=== PATIENT | male | born 1960 | race Caucasian/White ===

== ENCOUNTER 2017-03-12 09:55 | Emergency (ER) | payer OTHER ==
[~2017-03-12] VITALS: Ht 177.8 cm; Wt 92.0 kg
[2017-03-12 09:58] VITALS: BP 187/95; PULSE 82; RESP 24; TEMP 97.7; O2SAT 100
[2017-03-12] MEDS ORDERED: SODIUM CHLOR 0.9% 1000 ML INJ 1,000 ML IV SCH (10:43)
[2017-03-12] MEDS ORDERED: ONDANSETRON HCL 4 MG/2 ML VIAL IVP ONE (10:45)
[2017-03-12] MEDS ORDERED: MORPHINE SULFATE 4 MG/ML INJ IV PUSH ONE (10:45)
[2017-03-12] MEDS ORDERED: KETOROLAC TROMETHAMINE 30 MG/ML (IVP) VIAL IVP ONE (10:45)
[2017-03-12] MEDS ORDERED: SODIUM CHLORIDE 0.9% FLUSH 10 ML FLUSH IV FLUSH PRN (10:45)
--- NOTE | 2017-03-12 10:48 | PD ---
HPI Chief Complaint: Flank/Kidney Pain Time Seen by Provider: 10:43 Travel History International Travel<30 days: No Contact w/Intl Traveler<30days: No Traveled to known affect area: No History of Present Illness HPI The patient is a 57-year-old male who presents emergency department for flank pain. The patient was seen last at [facility] in [place], [place], for right flank pain. The patient was diagnosed with a 0.5 cm kidney stone at that time, was advised his UA was clean from infection, and was discharged home on pain medications and Flomax. The patient states his pain significantly improved, however, returned at 11 PM last night. The pain is located in the right flank, radiates to the right lower aspect of the abdomen , sharp, intermittent, associated with mild nausea. The patient does have a history of kidney stones in the past but denies any history of previous lithotripsy or stent placement. The patient denies any chronic medical problems and does not currently have a primary physician. Patient denies any dysuria, does complain of mild dark-colored urine. PFSH Past Medical History Cardiovascular Problems: Yes (htn) Social History Alcohol Use: No Tobacco Use: No Substance Use: No Allergies-Medications (Allergen,Severity, Reaction): Coded Allergies: No Known Allergies (Unverified , 03/12/17) Reported Meds & Prescriptions Reported Meds & Active Scripts Active No Active Prescriptions or Reported Medications Review of Systems Except as stated in HPI: all other systems reviewed are Neg General / Constitutional: No: Fever Cardiovascular: No: Chest Pain or Discomfort Respiratory: No: Shortness of Breath Gastrointestinal: Positive: Nausea, No: Vomiting, Diarrhea Genitourinary: Positive: Hematuria, Flank Pain, No: Dysuria Skin: No Rash Physical Exam Narrative GENERAL: Awake, alert, pleasant 77-year-old male who appears his stated age and appears in moderate discomfort. SKIN: Focused skin assessment warm/dry. HEAD: Atraumatic. Normocephalic. EYES: Pupils equal and round. No scleral icterus. No injection or drainage. ENT: No nasal bleeding or discharge. Mucous membranes pink and moist. NECK: Trachea midline. No JVD. CARDIOVASCULAR: Regular rate and rhythm. No murmur appreciated. RESPIRATORY: No accessory muscle use. Clear to auscultation. Breath sounds equal bilaterally. GASTROINTESTINAL: Abdomen soft, non-tender, nondistended. No rebound tenderness. Back: No true right CVA tenderness. Mild right flank tenderness. MUSCULOSKELETAL: No obvious deformities. No clubbing. No cyanosis. No edema. NEUROLOGICAL: Awake and alert. No obvious cranial nerve deficits. Motor grossly within normal limits. Normal speech. PSYCHIATRIC: Appropriate mood and affect; insight and judgment normal. Data Data Last Documented VS Vital Signs Date Time Temp Pulse Resp B/P Pulse Ox O2 Delivery O2 Flow Rate FiO2 03/12/17 10:50 99 Room Air 03/12/17 09:58 97.7 82 24 187/95 Orders Basic Metabolic Panel (Bmp) (03/12/17 10:43) Complete Blood Count With Diff (03/12/17 10:43) Urinalysis - C+S If Indicated (03/12/17 10:43) Ct Abd/Pel W/O Iv Contrast (03/12/17 10:43) Iv Access Insert/Monitor (03/12/17 10:43) Ecg Monitoring (03/12/17 10:43) Oximetry (03/12/17 10:43) Morphine Inj (Morphine Inj) (03/12/17 10:45) Ondansetron Inj (Zofran Inj) (03/12/17 10:45) Sodium Chlor 0.9% 1000 Ml Inj (Ns 1000 M (03/12/17 10:43) Sodium Chloride 0.9% Flush (Ns Flush) (03/12/17 10:45) Ketorolac Inj (Toradol Inj) (03/12/17 10:45) Labs Laboratory Tests Test 03/12/17 10:57 White Blood Count 18.8 TH/MM3 Red Blood Count 4.97 MIL/MM3 Hemoglobin 15.4 GM/DL Hematocrit 46.2 % Mean Corpuscular Volume 93.1 FL Mean Corpuscular Hemoglobin 31.1 PG Mean Corpuscular Hemoglobin 33.4 % Concent Red Cell Distribution Width 13.0 % Platelet Count 220 TH/MM3 Mean Platelet Volume 10.0 FL Neutrophils (%) (Auto) 85.4 % Lymphocytes (%) (Auto) 6.2 % Monocytes (%) (Auto) 8.0 % Eosinophils (%) (Auto) 0.0 % Basophils (%) (Auto) 0.4 % Neutrophils # (Auto) 16.1 TH/MM3 Lymphocytes # (Auto) 1.2 TH/MM3 Monocytes # (Auto) 1.5 TH/MM3 Eosinophils # (Auto) 0.0 TH/MM3 Basophils # (Auto) 0.1 TH/MM3 CBC Comment DIFF FINAL Differential Comment Urine Color COLORLESS Urine Turbidity CLEAR Urine pH 5.0 Urine Specific Temple 1.003 Urine Protein NEG mg/dL Urine Glucose (UA) NEG mg/dL Urine Ketones 10 mg/dL Urine Occult Blood NEG Urine Nitrite NEG Urine Bilirubin NEG Urine Urobilinogen LESS THAN 2.0 MG/DL Urine Leukocyte Esterase NEG Urine RBC LESS THAN 1 /hpf Urine WBC LESS THAN 1 /hpf Microscopic Urinalysis Comment CULT NOT INDICATED Sodium Level 133 MEQ/L Potassium Level 4.5 MEQ/L Chloride Level 100 MEQ/L Carbon Dioxide Level 23.5 MEQ/L Anion Gap 10 MEQ/L Blood Urea Nitrogen 18 MG/DL Creatinine 1.51 MG/DL Estimat Glomerular Filtration 48 ML/MIN Rate Random Glucose 71 MG/DL Calcium Level 9.2 MG/DL [facility] Medical Decision Making Medical Screen Exam Complete: Yes Emergency Medical Condition: Yes Medical Record Reviewed: Yes Interpretation(s) Laboratory Tests Test 03/12/17 10:57 White Blood Count 18.8 TH/MM3 Red Blood Count 4.97 MIL/MM3 Hemoglobin 15.4 GM/DL Hematocrit 46.2 % Mean Corpuscular Volume 93.1 FL Mean Corpuscular Hemoglobin 31.1 PG Mean Corpuscular Hemoglobin 33.4 % Concent Red Cell Distribution Width 13.0 % Platelet Count 220 TH/MM3 Mean Platelet Volume 10.0 FL Neutrophils (%) (Auto) 85.4 % Lymphocytes (%) (Auto) 6.2 % Monocytes (%) (Auto) 8.0 % Eosinophils (%) (Auto) 0.0 % Basophils (%) (Auto) 0.4 % Neutrophils # (Auto) 16.1 TH/MM3 Lymphocytes # (Auto) 1.2 TH/MM3 Monocytes # (Auto) 1.5 TH/MM3 Eosinophils # (Auto) 0.0 TH/MM3 Basophils # (Auto) 0.1 TH/MM3 CBC Comment DIFF FINAL Differential Comment Urine Color COLORLESS Urine Turbidity CLEAR Urine pH 5.0 Urine Specific Temple 1.003 Urine Protein NEG mg/dL Urine Glucose (UA) NEG mg/dL Urine Ketones 10 mg/dL Urine Occult Blood NEG Urine Nitrite NEG Urine Bilirubin NEG Urine Urobilinogen LESS THAN 2.0 MG/DL Urine Leukocyte Esterase NEG Urine RBC LESS THAN 1 /hpf Urine WBC LESS THAN 1 /hpf Microscopic Urinalysis Comment CULT NOT INDICATED Sodium Level 133 MEQ/L Potassium Level 4.5 MEQ/L Chloride Level 100 MEQ/L Carbon Dioxide Level 23.5 MEQ/L Anion Gap 10 MEQ/L Blood Urea Nitrogen 18 MG/DL Creatinine 1.51 MG/DL Estimat Glomerular Filtration 48 ML/MIN Rate Random Glucose 71 MG/DL Calcium Level 9.2 MG/DL CT of the abdomen and pelvis reveals 5 mm stone in the proximal right ureter just below the right UPJ causing hydronephrosis to the right kidney with perinephric edema. Left kidney is unremarkable. Diverticulosis of the sigmoid colon without inflammatory changes. Differential Diagnosis Differential diagnosis includes pyelonephritis, nephrolithiasis, hydronephrosis , acute renal failure, atypical cholecystitis. Narrative Course IV was established, labs are drawn and sent, and the patient was placed on cardiac telemetry monitoring and continuous pulse oximetry monitoring. The patient was administered morphine, Toradol, Zofran, and IV fluids. Noncontrast CT of the abdomen and pelvis was ordered. The patient's white count is elevated at 18.8, UA does reveal 10 ketones, no evidence of infection. Creatinine is 1.51. CT reveals a 5 mm stone in the proximal right ureter just below the right UPJ causing hydronephrosis to the right kidney. The patient was reevaluated at 11:46 AM. The patient's pain has resolved. I will increase the patient's Percocet to 10 mg/325 mg And Ibuprofen, and Advised to Continue Taking the Flomax. He Will Be Referred to Urology. The patient is advised to return If symptoms worsen or progress. Diagnosis Primary Impression: Nephrolithiasis Patient Instructions: General Instructions Additional Instructions: Continue Flomax as directed. Percocet and ibuprofen as directed. Follow-up with urology. Return if symptoms worsen or progress. Strain urine. Med/Other Pt SpecificInfo: Prescription(s) given Scripts Oxycodone-Acetaminophen (Percocet)10-325 mg Tab1 Tab PO Q6H PRN (PAIN) #20 TAB Ref 0 Prov:Tamir Echeverria MD 03/12/17 Ibuprofen 600 Mg Fox940 Mg PO Q6H PRN (Pain/Inflammation) #20 TAB Ref 0 Prov:Tamir Echeverria MD 03/12/17 Disposition: 01 DISCHARGE HOME Condition: Stable Tamir Echeverria MD March 12, 2017 10:48
[2017-03-12 10:50] VITALS: O2SAT 99
[2017-03-12 11:26] LABS: AUTOMATED NEUTROPHIL # 16.1 TH/MM3 (1.8-7.7); BASOPHIL # 0.1 TH/MM3 (0-0.2); BASOPHIL % 0.4 % (0.0-2.0); HEMATOCRIT 46.2 % (39.0-51.0); HEMO FLAGS DIFF FINAL; LYMPH % 6.2 % (9.0-44.0); LYMPHOCYTE # 1.2 TH/MM3 (1.0-4.8); MEAN CELL VOLUME 93.1 FL (80.0-100.0); MEAN CORPUSCULAR HEMOGLOBIN 31.1 PG (27.0-34.0); MEAN CORPUSCULAR HGB CONC 33.4 % (32.0-36.0); NEUT % 85.4 % (16.0-70.0); PLATELET COUNT 220 TH/MM3 (150-450); RED BLOOD COUNT 4.97 MIL/MM3 (4.50-5.90); WHITE BLOOD COUNT 18.8 TH/MM3 (4.0-11.0)
[2017-03-12 11:32] LABS: BLOOD, URINE NEG (NEG); GLUCOSE,URINE NEG (NEG); KETONE, URINE 10 mg/dL (NEG); NITRITE,URINE NEG (NEG); URINE COLOR COLORLESS (YELLW/STRAW)
[2017-03-12 11:35] LABS: COMMENT (UR) CULT NOT INDICATED; CULTURE IF INDICATED CULT NOT INDICATED
[2017-03-12 11:42] LABS: BICARBONATE 23.5 MEQ/L (21.0-32.0)
--- NOTE | 2017-03-12 11:42 | RADRPT ---
EXAM DATE/TIME: 03/12/2017 11:10 [facility] COMPARISON: No previous studies available for comparison. INDICATIONS : Right flank painhistory of renal stones. ORAL CONTRAST: No oral contrast ingested. RADIATION DOSE: 15.01 CTDIvol (mGy) MEDICAL HISTORY : Hypertension. Renal calculi. SURGICAL HISTORY : None. ENCOUNTER: Initial ACUITY: 1 day PAIN SCALE: 8/10 LOCATION: Right Abdomen TECHNIQUE: Volumetric scanning of the abdomen and pelvis was performed. Using automated exposure control and ad justment of the mA and/or kV according to patient size, radiation dose was kept as low as reasonably achievable to obtain optimal diagnostic quality images. The lack of IV contrast limits the diagnosis for certain organ pathology. FINDINGS: LOWER LUNGS: The visualized lower lungs are clear. LIVER: Homogeneous density without lesion. There is no dilation of the biliary tree. No calcified gallston es. SPLEEN: Normal size without lesion. PANCREAS: Within normal limits. KIDNEYS: Normal in size and shape. There is hydronephrosis of the right collecting system with perinephric ion ma. No calcified right renal stones are seen. However there is a 5 mm stone in the proximal right ure ter just below the right UPJ causing the obstruction. The left kidney is unremarkable with no evidenc e of hydronephrosis or stones. ADRENAL GLANDS: Within normal limits. VASCULAR: There is no aortic aneurysm. BOWEL/MESENTERY: The stomach, small bowel, and colon demonstrate no acute abnormality. There is no free intraperitone al air or fluid. A few small scattered diverticula along the sigmoid colon without inflammatory marks es. ABDOMINAL WALL: Within normal limits. RETROPERITONEUM: There is no lymphadenopathy. BLADDER: No wall thickening or mass. REPRODUCTIVE: Within normal limits. INGUINAL: There is no lymphadenopathy or hernia. MUSCULOSKELETAL: Within normal limits for patient age. CONCLUSION: 1. 5 mm stone in the proximal right ureter just below the right UPJ causing hydronephrosis to the rig ht kidney. 2. The left kidney is unremarkable. 3. Diverticulosis of the sigmoid colon without inflammatory changes. Flash Pineda MD on March 12, 2017 at 11:36 Board Certified Radiologist. This report was verified electronically.
[2017-03-12 11:43] LABS: POTASSIUM 4.5 MEQ/L (3.5-5.1)
[2017-03-12] MEDS ORDERED: IBUP-232 PO (11:55)
[2017-03-12] MEDS ORDERED: PERC10TA27 PO (11:55)
[2017-03-12 11:56] VITALS: BP 165/89; PULSE 75; RESP 18; O2SAT 97
[2017-03-12 12:00] VITALS: RESP 18
== END 2017-03-12 12:12 | disposition home or self-care (01) ==
LOC: NEPD 09:55
DX: N20.0 Calculus of kidney (principal); I10 Essential (primary) hypertension; K57.30 Diverticulosis of large intestine without perforation or abscess without bleeding
CPT/HCPCS: 74176; 80048; 81001; 85025; 96361; 96374; 96375; 99284; J1885; J2270; J2405; J7030